=== PATIENT | male | born 1955 | race Caucasian/White ===

== ENCOUNTER 2023-11-19 09:24 | Outpatient (CLI) | payer MEDICARE, BC, SELFPAY | END 2023-11-19 09:25 | disposition home or self-care (01) | PROVIDERS: Visit Provider Nurse Practitioner | DX: C61 Malignant neoplasm of prostate (principal); C77.2 Secondary and unspecified malignant neoplasm of intra-abdominal lymph nodes | CPT/HCPCS: 72195 ==